=== PATIENT | female | born 1990 ===

== ENCOUNTER 2025-02-15 09:42 | Outpatient (AMB) | payer BC, SELFPAY ==
--- NOTE | 2025-02-15 09:46 | MHC.PC.OV ---
Vital Signs 02/15/25 09:47 Height 5 ft 4.37 in Weight 235 lb 6 oz BMI 39.9 BP 108/76 Blood Pressure Location Lt brachial Position Sitting Respiration 14 Pulse 92 Pulse Source Pulse Oximeter Pulse Oximetry (%) 99 Oxygen Delivery Method Room Air Intake Visit Reasons: EST CARE REQUESTING PE Intake Note: New patient visit. Hasnt been to the doctor in awhile. Binder Technician Required: No Allergies No Known Allergies Allergy (Verified 02/15/25 10:11) Medication List - Last Reconciled 02/15/25 by Trini Dudley PA-C No Known Home Meds Tobacco use date assessed: 02/15/25 Dental Screening Dental Screen Date: 02/15/25 Did you have a dental visit in the last 12 months?: No Did you have a dental problem in the last 6 months where you did not have access to dental care?: No Was dental information given to patient?: Patient has dentist HPI EST CARE REQUESTING PE HPI Details Patient is a 34-year-old female who presents today to [facility]. She is transferring from pediatrics (12 years ago). She reports a significant past medical history of asthma. She does have a list of some concerns today. General: States that she just feels very tired all of the time. She does not sleep that well at night. She says that she gets up frequently. Pulm: has a hx of mild, rare asthma. States that she has not needed an inhaler in years. Never hospitalized for this. Derm: Does report toenail fungus for 2 years. She has tried some lkar-kth-sdluenx antifungal but that did not seem to alleviate the symptoms. She also has been breaking out in an intermittent, bumpy, rough rash noted on her bilateral forearms. Sometimes it is spreads to her neck. She wonders if this could be eczema. GI: She reports epigastric pain with a gnawing sensation that gets worse without eating. She states she feels a burning sensation with it. She states it is improved with tums. She gets nausea with going too long without eating. It was improved with food. She denies any weight loss or vomiting. At sometimes feels episodes of constipation. No bleeding or mucous in the stool. 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 1. Little interest or pleasure in doing things: nearly every day 2. Feeling down, depressed, or hopeless: not at all 3. Trouble falling or staying asleep, or sleeping too much: not at all 4. Feeling tired or having little energy: not at all 5. Poor appetite or overeating: not at all 6. Feeling bad about yourself - or that you are a failure or have let yourself or your family down: not at all 7. Trouble concentrating on things, such as reading the newspaper or watching television: not at all 8. Moving or speaking so slowly that other people could have noticed. Or the opposite - being so fidgety or restless that you have been moving around a lot more than usual: not at all 9. Thoughts that you would be better off or of hurting yourself in some way: not at all Total score: 3 Depression Screening Interpretation: Negative Depression Screening Done: Yes 75655 - PHQ-9 Billing: Yes Source: Developed by Drs. Rahul Batista, Joelle Dumont, Yazan Pizano and colleagues, with an educational michael from [employer]. Thrive Questionnaire Date Thrive assessed: 02/15/25 I am a: Patient What is your living situation today?: I have a steady place to live Within the past 12 months, did the food you bought not last and you didn't have the money to get more?: Never true Within the past 12 months, did you worry whether your food would run out before you got money to buy more?: Never true Do you have trouble paying for medicines?: No Do you have trouble getting transportation to medical appointments?: No Do you have trouble paying your heating and electricity bill?: No Do you have trouble taking care of your child, family member or friend?: No Do you have trouble with day-to-day activities such as bathing, preparing meals, shopping, managing finances, etc.?: No Are you currently unemployed and looking for a job?: No Are you interested in more education?: Yes Please select the resources that you would like help with: None Currently or been in a relationship where the following occur: No concerns reported THRIVE Score: 0 AUDIT C Alcohol Use Questionnaire (AUDIT-C) 1. How often do you have a drink containing alcohol?: Monthly or less 2. How many drinks containing alcohol do you have on a typical day when you are drinking?: 1 or 2 3. How often do you have six or more drinks on one occasion?: Never Total Score: 1 Score Reviewed/Action Taken: Yes STACI-7 AMB Questionnaire STACI-7 Feeling nervous, anxious, or on edge: 1 = Several days Not being able to stop or control worryin = Several days Worrying too much about different things: 1 = Several days Trouble relaxin = Not at all Being so restless that it is hard to sit still: 0 = Not at all Becoming easily annoyed or irritable: 1 = Several days Feeling afraid as if something awful might happen: 0 = Not at all Total STACI-7 score (0-4 normal; 5-9 mild; 10-14 moderate; 15-21 severe): 4 Source: Developed by Drs. Rahul Batista, Joelle Dumont, Yazan Pizano and colleagues, with an educational michael from [employer]. STACI-7 Assessment Billing STACI-7 Assessment Tool: STACI-7 Assessment 41320 Physical exam (Primary Care) Vital Signs: Last Vital Signs Pulse 92 02/15/25 09:47 Resp 14 02/15/25 09:47 BP 108/76 02/15/25 09:47 Pulse Ox 99 02/15/25 09:47 Oxygen Delivery Method Room Air 02/15/25 09:47 BMI result Body Mass Index 39.9 Tobacco/Smoking Status: Tobacco use Status Tobacco use date assessed 02/15/25 02/15/25 09:55 Patient Tobacco Use Status Never used Tobacco 02/15/25 09:55 e-Cigarette/Vaping Use Never Used 02/15/25 09:55 PHQ-9: PHQ-9 Score PHQ-9: Total score 3 02/15/25 13:25 Depression Screening Interpretation: Negative Thrive Assessment: Date of Thrive Assessment Date Thrive assessed 02/15/25 02/15/25 09:55 Currently or been in a relationship where the following occur: No concerns reported Const Orientation/consciousness: patient oriented x3 HENMT Ears: hearing grossly normal bilaterally and TM's normal bilaterally General nose exam: No nasal polyps present Face and sinus: Yes sinuses nontender Mouth: Normal oral and palatal mucosa present Eyes EOM: EOMs intact bilaterally Neck Neck: Yes full ROM and Yes no lymphadenopathy Thyroid: Thyroid normal Chest Chest palpation & inspection: normal inspection of the chest Resp Auscultation: clear to auscultation bilaterally Cardio Rate: regular rate Rhythm: regular rhythm Heart sounds: S1 normal heart sound present and S2 normal heart sound present Peripheral pulses: Peripheral pulses 2+ throughout GI Other: Soft, nontender Auscultation: normal bowel sounds Rectal Exam - Female: deferred Skin Other: There is a fine, flesh-colored, papular rash noted on the bilateral upper extremities on the flexor surfaces. There is a circular rash noted on the left upper arm that is approximately 3 in x 3 in with a center if clearing in a slightly raised outer erythematous ring. Neuro General: patient oriented x3, gait normal, CN's II-XI intact bilaterally and deep tendon reflexes 2+ bilaterally Extrem Other: Thickened toenails General: Yes normal to inspection and Yes full ROM Psych Affect: normal affect Attitude: cooperative Thought process: Normal thought process present Thought content: Normal thought content present Insight: Good insight present (Psych) Judgement: Good judgement present (Psych) Coding Level of Care Code New Pt Level 4 (17794) Complex EM visit Add On G2211 Diagnoses Lesion of skin of face L98.9 Dermatitis L30.9 Onychomycosis B35.1 Fatigue R53.83 Epigastric pain R10.13 Constipation K59.00 Additional Codes STACI-7 Assessment Billing - STACI-7 Assessment Tool: STACI-7 Assessment 88111 ([id number]) PHQ-9 - 01403 - PHQ-9 Billing: Yes ([id number]) Assessment & Plan Assessment & Plan (1) Lesion of skin of face: Code(s): L98.9 - Disorder of the skin and subcutaneous tissue, unspecified Category: Medical Plan: Referral to dermatology (2) Dermatitis: Code(s): L30.9 - Dermatitis, unspecified Category: Medical Plan: Advised to apply triamcinolone cream (3) Onychomycosis: Code(s): B35.1 - Tinea unguium Category: Medical Plan: Penlac solution ordered (4) Fatigue: Code(s): R53.83 - Other fatigue Category: Medical Plan: Labs ordered today. We will follow up pending test results (5) Epigastric pain: Code(s): R10.13 - Epigastric pain Category: Medical Plan: H pylori test ordered. Labs ordered. We discussed diet and lifestyle modifications. (6) Constipation: Code(s): K59.00 - Constipation, unspecified Category: Medical Plan: As above. Referral to GI. Discussed diet changes, increase exercise and water intake. Orders: Orders Lipid Panel Today B35.1 - Tinea unguium, K59.00 - Constipation, unspecified, L30.9 - Dermatitis, unspecified, L98.9 - Disorder of the skin and subcutaneous tissue, unspecified, R10.13 - Epigastric pain, R53.83 - Other fatigue Magnesium Today B35.1 - Tinea unguium, K59.00 - Constipation, unspecified, L30.9 - Dermatitis, unspecified, L98.9 - Disorder of the skin and subcutaneous tissue, unspecified, R10.13 - Epigastric pain, R53.83 - Other fatigue Hemoglobin A1c Today B35.1 - Tinea unguium, K59.00 - Constipation, unspecified, L30.9 - Dermatitis, unspecified, L98.9 - Disorder of the skin and subcutaneous tissue, unspecified, R10.13 - Epigastric pain, R53.83 - Other fatigue, R73.01 - Impaired fasting glucose Vitamin D 25-OH Total Today K59.00 - Constipation, unspecified, R10.13 - Epigastric pain, R53.83 - Other fatigue Complete Blood Count Auto Diff Today B35.1 - Tinea unguium, K59.00 - Constipation, unspecified, L30.9 - Dermatitis, unspecified, L98.9 - Disorder of the skin and subcutaneous tissue, unspecified, R10.13 - Epigastric pain, R53.83 - Other fatigue Comprehensive Hanna. Panel Fast Today B35.1 - Tinea unguium, K59.00 - Constipation, unspecified, L30.9 - Dermatitis, unspecified, L98.9 - Disorder of the skin and subcutaneous tissue, unspecified, R10.13 - Epigastric pain, R53.83 - Other fatigue Microalbumin, Random (w Creat) Today B35.1 - Tinea unguium, K59.00 - Constipation, unspecified, L30.9 - Dermatitis, unspecified, L98.9 - Disorder of the skin and subcutaneous tissue, unspecified, R10.13 - Epigastric pain, R53.83 - Other fatigue Vitamin B12 and Folate Today B35.1 - Tinea unguium, K59.00 - Constipation, unspecified, L30.9 - Dermatitis, unspecified, L98.9 - Disorder of the skin and subcutaneous tissue, unspecified, R10.13 - Epigastric pain, R53.83 - Other fatigue TSH reflex Free T4 Today B35.1 - Tinea unguium, K59.00 - Constipation, unspecified, L30.9 - Dermatitis, unspecified, L98.9 - Disorder of the skin and subcutaneous tissue, unspecified, R10.13 - Epigastric pain, R53.83 - Other fatigue Ferritin Today B35.1 - Tinea unguium, K59.00 - Constipation, unspecified, L30.9 - Dermatitis, unspecified, L98.9 - Disorder of the skin and subcutaneous tissue, unspecified, R10.13 - Epigastric pain, R53.83 - Other fatigue IRON PROFILE Today B35.1 - Tinea unguium, K59.00 - Constipation, unspecified, L30.9 - Dermatitis, unspecified, L98.9 - Disorder of the skin and subcutaneous tissue, unspecified, R10.13 - Epigastric pain, R53.83 - Other fatigue H pylori Ag Stool Today K59.00 - Constipation, unspecified, R10.13 - Epigastric pain, R53.83 - Other fatigue Referrals Dermatology Referral B35.1 - Tinea unguium, L30.9 - Dermatitis, unspecified, L98.9 - Disorder of the skin and subcutaneous tissue, unspecified Gastroenterology Referral K59.00 - Constipation, unspecified Medications: New ciclopirox 8% 1 appl topical DAILY 4 weeks 6.6 mL 3RF triamcinolone acetonide 0.025% 1 appl topical BID 14 days 80 grams 2RF clotrimazole 1% to affected area on left arm 1 appl topical BID 4 weeks 30 grams 0RF
[2025-02-15 09:47] VITALS: BP 108/76; PULSE 92; RESP 14; O2SAT 99; BMI 39.9
--- OUTSIDE RECORDS SUMMARY | 2025-02-15 10:18 | XMS_ITS | Clinical Summary ---
Author Organization [facility] ity Address [address] [place] [address] Care Team Providers Care Part Time Receptionist Name Role Phone Анна Guido MD Primary Care Prov ider Allergies Active Allergy Reactions Criticality Noted Date Comments Other Nausea And Vomiting 01/03/2014 Seafood Medications fluticasone HFA (FLOVENT HFA) 44 mcg/actuation inhaler Inhale 2 Puffs into the lungs 2 times daily. Active loratadine (CLARITIN) 10 mg tablet Take 10 mg by mouth daily. Prn Active Active Problems Problem Noted Date Diagnosed Date Intermittent asthma, well controlled 01/03/2014 Immunizations Name Administration Dates Next Due Pneumococcal polysaccharide 23 valent (Pneumovax 23) 2yo and older 01/03/2014 Tdap Tetanus diptheria acell ular pertussis (Boostrix; Adacel) 7yo and older 01/03/2014 Surgical History Surgery Date Site/Laterality Comments OTHER SURGICAL HISTORY PROCEDURE: DENIES PREVIOUS SURGERY Medical History Medical History Date Comments Historical Medical DX 01/03/2014 DX:Asthma, intermittent controlled Family History Medical History Relation Name Comments Asthma Mother Relation Name Status Comments Brother 1 Alive Brother 2 Alive Brother 3 Alive Brother 4 Alive Brother 5 Alive Father Alive Mother Alive Sister 1 Alive Sister 2 Alive Social History Tobacco Use Types Packs/Day Years Used Date Smoking Tobacco: Never Smokeless Tobacco: Never Alcohol Use Standard Drinks/Week Comments No 0 (1 standard drink = 0.6 oz pur e alcohol) Comments Unknown Sex and Gender Information Value Date Recorded Sex Assigned at Not on file Legal Sex Female 7:05 AM EST Gender Identity Not on file Sexual Orientation Not on file Obstetrics History Plan of Treatment Health Maintenance Due Date Last Done Comments Hepatitis B Vaccines (1 of 3 - 19+ 3-dose series) 2009 Cervical Cancer Screening: P ap Smear 2011 Pneumococcal Vaccine: Pediat rics (0 to 5 Years) and At-Risk Patients (6 to 64 Years) (2 of 2 - PCV) 01/03/2015 01/03/2014 DTaP,Tdap,and Td Vaccines (2 - Td or Tdap) 01/04/2024 01/03/2014 COVID-19 Vaccine (1 - 2023-2 5 season) 2024 Depression Screening 11/04/2024 HIV Screening 11/04/2024 Hepatitis C Screening 11/04/2024 Social Influencers of Health Screening 11/04/2024 Influenza Vaccine (Season Ended) 2025 HIB Vaccines Aged Out No longer eligi ble based on patient's age to complete this topic HPV Vaccines Aged Out No longer eligi ble based on patient's age to complete this topic Hepatitis A Vaccines Aged Out No long er eligible based on patient's age to complete this topic IPV Vaccines Aged Out No longer eligi ble based on patient's age to complete this topic MMR Vaccines Aged Out No longer eligi ble based on patient's age to complete this topic Meningococcal ACWY Vaccine Aged Out N o longer eligible based on patient's age to complete this topic Meningococcal B Vaccine Aged Out No l onger eligible based on patient's age to complete this topic RSV Immunization Patients Un kay 20 months Aged Out No longer eligible b ased on patient's age to complete this topic Varicella Vaccines Aged Out No longer eligible based on patient's age to complete this topic Care Teams Part Time Receptionist Relationship Specialty Start Date End Date Анна Guido MD PCP - General 11/22/13
--- OUTSIDE RECORDS SUMMARY | 2025-02-15 10:19 | XMS_ITS ---
Author Name [facility] Results Test Name/Text Value Interpretation Date Range Source CHLAMYDIA TRACHOMATIS, NAAT Negative [id number] - [facility] NEISSERIA GONORRHOEAE RIBOSO MAL RNA Negative [id number] - [facility] SYPHILIS SCREEN Nonreactive [id number] - [facility] HEPATITIS B SURFACE ANTIGEN (IA5) Negative [id number] - [facility] HEPATITIS C ANTIBODY (IA5) Negative [id number] - [facility] HIV 1+2 AB + HIV1 P24 AG (PRESENCE) IN SERUM BY IMMUNOASSAY Negative [id number] - [facility] Problems Problem Status Onset Date Problem Type Date of Resoluti on Source Screen for STD (sexually transmitted disease) active EncounterDiagnosisAct [facility] Sore throat active EncounterDiagnosisAct [facility] Encounters Encounter Type Encounter Reason Primary Diagnosis Location Date Ambulatory Encounter for screening for infections w Encounter for screening for infections with a predominantly sexual mode of transmission [facility] 02/09/2025 Ambulatory Encounter for gynecological examination Encounter for gynecological examination (general) (routine) without abnormal findings [facility] 02/09/2025 Emergency Strain of muscle, fascia and tendon at n Strain of muscle, fascia and tendon at neck level, initial encounter [facility] 05/31/2024 Emergency Strain of unspecifie d muscle, fascia and Strain of unspecified muscle, fascia and tendon at shoulder and upper arm level, right arm, initial encounter [facility] 09/18/2023 Ambulatory Acute pharyngitis, unspecified Acute pharyngitis, unspecified [facility] 05/27/2023 Ambulatory Encounter for gynecological examination (general) (routine) without abnormal findings [facility] 08/12/2022 Ambulatory Pelvic and perin eal pain [facility] 05/06/2022 Emergency Unspecified ovar la nena cyst, right side [facility] 04/29/2022 Ambulatory Lower abdominal pain, unspecified [facility] 04/29/2022 Care Team Organization Name Specialty Phone Email Start Date End Da neema [facility] PCP,No Primary Care 08/12/2022 [facility] NO PCP Primary Care 04/29/202205/[address] [facility] 04/29/2022 04/29/[address] [facility] 04/29/2022
--- OUTSIDE RECORDS SUMMARY | 2025-02-15 10:19 | XMS_ITS | Clinical Summary ---
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 estradioL-iron (JUNEL FE 10/24) 1 mg-20 mcg (21)/75 mg (7) per tablet Take 1 tablet by mouth in the morning. 28 tablet 10/12/2023 Active Encounters Date Type Department Care Team Description 02/09/2025 11:30 AM EDT Office Visit [facility] [place] [address] [place] [address] Elizabeth Adame, RESERVOIR CARETAKER Encounter for gynecological examination without abnormal finding (Primary Dx); Missed menses; Screen for STD (sexually transmitted disease); Pelvic pressure in female from Last 3 Months Family History Medical History Relation Comments Asthma Mother Cervical cancer Mother Relation Status Comments Father Alive Mother Alive Social History Tobacco Use Types Packs/Day Years Used Date Smoking Tobacco: Never Smokeless Tobacco: Never Alcohol Use Standard Drinks/Week Comments Not Currently 0 (1 standard drink = 0.6 oz pur e alcohol) Comments No Sex and Gender Information Value Date Recorded Sex Assigned at Not on file Legal Sex Female 9:20 PM EDT Gender Identity Not on file Sexual Orientation Not on file COVID-19 Exposure Response Date Recorded In the last 10 days, have gregory u been in contact with someone who was confirmed or suspected to have Coronavirus/COVID-19? No / Unsure 02/09/2025 10:40 AM EDT Last Filed Vital Signs Vital Sign Reading Time Taken Comments Blood Pressure 127/78 02/09/2025 11:39 AM EDT Pulse 86 02/09/2025 11:39 AM EDT Temperature 36.5 ??C (97.7 ??F) 05/31/2024 2:49 PM ED T Respiratory Rate 18 05/31/2024 2:49 PM EDT Oxygen Saturation 95% 05/31/2024 2:49 PM EDT Inhaled Oxygen Concentration - - Weight 107 kg (235 lb 12.8 oz) 02/09/2025 11:39 AM EDT Height 165.1 cm (5' 5 ) 02/09/2025 11:39 AM EDT Body Mass Index 39.24 02/09/2025 11:39 AM EDT Plan of Treatment Upcoming Encounters Date Type Department Care Team (Late st Contact Info) Description 02/17/2025 2:00 PM EDT Appointment [facility] Department of Ultrasound Imaging [address] [place] [address] Elizabeth Adame, RESERVOIR CARETAKER [address] [place] [address] Health Maintenance Due Date Last Done Comments Hepatitis B Vaccines (1 of 3 - 19+ 3-dose series) 2009 Pneumococcal Vaccine: Pediat rics (0 to 5 Years) and At-Risk Patients (6 to 49 Years) (2 of 2 - PCV) 01/03/2015 01/03/2014 DTaP,Tdap,and Td Vaccines (2 - Td or Tdap) 01/04/2024 01/03/2014 COVID-19 Vaccine ( - 2023-2 5 season) 2024 Pap Smear 05/06/2025 05/06/2022 Influenza Vaccine (Season Ended) 2025 Cervical Cancer Screening 05/06/2027 HPV/Cotest 05/06/2027 05/06/2022 Zoster Vaccines (1 of 2) 2040 HIV Screening Completed 02/09/2025 Hepatitis C Screening Completed 02/09/2025 HPV Vaccines Aged Out No longer eligi ble based on patient's age to complete this topic Hepatitis A Vaccines Aged Out No long er eligible based on patient's age to complete this topic MMR Vaccines Aged Out No longer eligi ble based on patient's age to complete this topic Meningococcal Vaccine Aged Out No natalie eric eligible based on patient's age to complete this topic Procedures Procedure Name Priority Date/Time Associated Diagnosis Comments NEISSERIA GONORRHEA NAAT Routine 02/09/2025 12:52 PM EDT Screen for STD (sexually transmitted disease) CHLAMYDIA TRACHOMATIS NAAT Routine 02/09/2025 12:52 PM EDT Screen for STD (sexually transmitted disease) NEISSERIA GONORRHOEAE/CHLAMYDIA TRACHOMATIS NAAT Routine 02/09/2025 12:52 PM EDT Screen for STD (sexually transmitted disease) SYPHILIS SCREEN W/REFLEX TO CONFIRMATION Routine 02/09/2025 12:22 PM EDT Screen for STD (sexually transmitted disease) HIV COMBO ANTIGEN/ANTIBODY Routine 02/09/2025 12:22 PM EDT Screen for STD (sexually transmitted disease) HEPATITIS C ANTIBODY Routine 02/09/2025 12:22 PM EDT Screen for STD (sexually transmitted disease) HEPATITIS B SURFACE ANTIGEN Routine 02/09/2025 12:22 PM EDT Screen for STD (sexually transmitted disease) POCT , URINE Routine 02/09/2025 11:51 AM EDT Missed menses PAP TEST Routine 05/06/2022 11:29 AM EDT Screening for cervical cancer HPV, HIGH RISK, NAAT, W/ REFLEX TO GENOTYPES 16 AND 18/45 Routine 05/06/2022 11:29 AM EDT Screening for cervical cancer from Last 3 Months or Most Recently Relevant to Health Maintenance Results * Neisseria gonorrhea NAAT (02/09/2025 12:52 PM EDT) Neisseria gonorrhoeae ribosomal RNA Negative Negative 02/09/2025 6:44 PM EDT [facility] Comment:Specimen is presumpt ively negative for Neisseria gonorrhoeae ribosomal RNA (rRNA). A negative result does not preclude the presence of a Neisseria gonorrhoeae infection because results are dependent on adequate specimen collection, absence of inhibitors, and sufficient rRNA to be detected. Swab Vaginal structure / Unknown Non-blood Collection / Unknown 02/09/2025 12:52 PM EDT 02/09/2025 2:22 PM EDT [facility] - 02/09/2025 6:44 PM EDT The Aptima Combo 2 Assay is a second-generation nucleic acid amplification test (NAAT) that utilizes target capture, Digital Pre Press Operator-Mediated Amplification (TMA??), and Dual Kinetic Assay (DKA) technologies for the qualitative detection and differentiation of ribosomal RNA (rRNA) from Chlamydia trachomatis (CT) and / or Neisseria gonorrhoeae (GC). us Elizabeth Adame APRN LAB MICROBIOLOGY - GENERA L ORDERABLES Final Result [facility] [address] [place] [address], * Chlamydia trachomatis NAAT (02/09/2025 12:52 PM EDT) Chlamydia trachomatis ribosomal RNA Negative Negative 02/09/2025 6:44 PM EDT [facility] Comment:Specimen is presumpt ively negative for Chlamydia trachomatis ribosomal RNA (rRNA). A negative result does not preclude the presence of a Chlamydia trachomatis infection because results are dependent on adequate specimen collection, absence of inhibitors, and sufficient rRNA to be detected. Swab Vaginal structure / Unknown Non-blood Collection / Unknown 02/09/2025 12:52 PM EDT 02/09/2025 2:22 PM EDT [facility] - 02/09/2025 6:44 PM EDT The Aptima Combo 2 Assay is a second-generation nucleic acid amplification test (NAAT) that utilizes target capture, Digital Pre Press Operator-Mediated Amplification (TMA??), and Dual Kinetic Assay (DKA) technologies for the qualitative detection and differentiation of ribosomal RNA (rRNA) from Chlamydia trachomatis (CT) and / or Neisseria gonorrhoeae (GC). Elizabeth Adame APRN LAB MICROBIOLOGY - GENERA L ORDERABLES Final Result Performing Organization Address City/[facility]/ZIP Co de Phone Number [facility] [address] [place] [address], [place] [phone] * Syphilis Screen w/Reflex to Confirmation (02/09/2025 12:22 PM EDT) Syphilis Screen Nonreactive Nonreactive 02/09/2025 2:30 PM EDT [facility] Blood Venous blood specimen / Unknown Venipuncture / Unknown 02/09/2025 12:22 PM EDT 02/09/2025 12:22 PM EDT Elizabeth Adame APRN LAB BLOOD ORDERABLES [place] l Result Performing Organization Address City/[facility]/ZIP Co de Phone Number [facility] [address] [place] [address], [place] [phone] * HIV combo antigen/antibody (02/09/2025 12:22 PM EDT) HIV Combo AB/AG Negative Negative 02/09/2025 2:29 PM EDT [facility] Blood Venous blood specimen / Unknown Venipuncture / Unknown 02/09/2025 12:22 PM EDT 02/09/2025 12:22 PM EDT Narrative [facility] - 02/09/2025 2:29 PM EDT This test is a 4th generation HIV Antigen-Antibody Combination assay, using a chemiluminescent microparticle immunoassay, for the simultaneous qualitative detection of human immuno- deficiency virus (HIV) p24 antigen and antibodies to HIV type 1 (HIV-1) and/or HIV type 2 (HIV-2) in human serum or plasma. The SignStoreynity HIV Ag/Ab Combo assay is intended to be used as an aid in the diagnosis of HIV-1 and/or HIV-2 infection, including acute or primary HIV-1 infection. Initially-positive tests are repeated in duplicate. Repeat-positive tests will be confirmed for HIV by a HIV-1/HIV-2 rapid supplemental/ differentiation antibody assay. This testing algorithm is in line with the current CDC recommendations. [facility] LAB BLOOD ORDERABLES NO S TAT Final Result Performing Organization Address City/[facility]/ZIP Co de Phone Number [facility] [address] [place] [address], [place] [phone] * Hepatitis C antibody (02/09/2025 12:22 PM EDT) Pathologist [facility] Hepatitis C Antibody Negative Negative 02/09/2025 2:30 PM EDT [facility] Comment:Anti-HCV (HCVAb) Not Detected. Patient is presumed not to be infected with HCV. The possibility of exposure to HCV cannot be excluded. Blood Venous blood specimen / Unknown Venipuncture / Unknown 02/09/2025 12:22 PM EDT 02/09/2025 12:22 PM EDT [facility] LAB BLOOD ORDERABLES NO S TAT Final Result [facility] [address] [place] [address], [place] [phone] * Hepatitis B surface antigen (02/09/2025 12:22 PM EDT) Hepatitis B Surface Antigen Negative Negative 02/09/2025 2:30 PM EDT [facility] Comment:HBsAg Not Detected. Specimen is presumed to be negative for Hepatitis B surface Antigen. Blood Venous blood specimen / Unknown Venipuncture / Unknown 02/09/2025 12:22 PM EDT 02/09/2025 12:22 PM EDT us Elizabeth Adame APRN LAB BLOOD ORDERABLES NO S TAT Final Result Performing Organization Address City/[facility]/ZIP Co de Phone Number [facility] [address] [place] [address], * POCT , urine (02/09/2025 11:51 AM EDT) Preg Test, Ur Negative Negative Test Device Lot # [id number] Test Device Exp. date 03/21/2026 Internal Control Pass (Y/N) Yes Urine 02/09/2025 11:5 1 AM EDT Elizabeth Adame APRN POINT OF CARE TEST ORDERA BLES Final Result * HPV, high risk, NAAT (05/06/2022 11:29 AM EDT) HPV, high-risk Negative Negative 05/09/2022 2:12 PM EDT [facility] [place] biopsy (procedure) Cervix uteri structure / Unknown Non-blood Collection / Unknown 05/06/2022 11:29 AM EDT 05/06/2022 1:35 PM EDT Narrative [facility] - 05/09/2022 2:12 PM EDT Negative results indicate Human Papillomavirus (HPV) E6/E7 viral messenger RNA of the 14 high-risk types of HPV was not detected. NOTE: Negative results may occur with HPV E6/E7 mRNA concentrations that are below the pre-set limit of detection threshold for this assay. Results of this test should only be interpreted in conjunction with information available from the clinical evaluation of the patient and patient history. us Elizabeth Adame APRN LAB MICROBIOLOGY - GENERA L ORDERABLES Final Result Performing Organization Address City/[facility]/ZIP Co de Phone Number [facility] [address] [place] [address], * Pap Test (05/06/2022 11:29 AM EDT) Case Report Cytology ?Case: [id number] ? Authorizing Provider: ??Elizabeth Adame APRN ?? Collected: ? 05/06/2022 1129 ? Ordering Location: ? [facility] Department of Received: ?2022 0853 ? [facility] [place] ? First Screen: ?Hoda Baker, RUT (ASCP) ? Pathologist: ? Brittany Kimbrough MD ? Specimen: ?Cytopathology, screening PAP test, Cervix ? 05/09/2022 2:12 PM EDT [facility] LMP 04/15/2022 05/09/2022 2:12 PM EDT [facility] Interpretation Negative for intraepithelial lesion or malignancy 05/09/2022 2:12 PM EDT [facility] at 1412 EDT Specimen Adequacy Satisfactory for evaluation, endocervical/bender sformation zone component present 05/09/2022 2:12 PM EDT [facility] Other Findings Reparative changes 05/09/2022 2:12 PM EDT [facility] Specimen Processing Thin Prep pap with manual screen/rescreen or review 05/09/2022 2:12 PM EDT [facility] Educational Note The Pap test is a screening test which carries an inherent false negative rate. These test results should be correlated with the patient's clinical findings and history. 05/09/2022 2:12 PM EDT [facility] Embedded Images 2:12 PM EDT [facility] High Risk HPV Nucleic Acid Detection Negative 05/09/2022 2:12 PM EDT [facility] Comment: Negative results indicate HPV E6/E7 mRNA of the 14 high-risk types of HPV was not detected. NOTE: Negative results may occur with HPV E6/E7 mRNA concentrations that are below the pre-set limit of detection threshold for this assay. Results of this test should only be interpreted in conjunction with information available from the clinical evaluation of the patient and patient history. The APTIMA HPV Assay is a target amplification nucleic acid probe test for the in vitro qualitative detection of E6/E7 viral messenger RNA (mRNA), from 14 high- risk HPV types of human papillomavirus (HPV) (16/18/31/33/35/39/45/51/52/56/58/59/66/68) in cervical specimens collected in ThinPrep Pap Test vials containing PreservCyt Solution. The APTIMA HPV Assay does not discriminate between the 14 high-risk types. ??If clinically indicated, positive samples may be additionally tested with the APTIMA HPV 16 18/45 Genotype Assay to assess the presence or absence of high- risk HPV genotypes 16, 18 and/or 45. These results are not intended to be the sole means for clinical diagnosis and should always be correlated with other patient findings, including cytology, histology, and clinical evaluation. 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
--- OUTSIDE RECORDS SUMMARY | 2025-02-15 10:19 | XMS_ITS | Clinical Summary ---
Author Organization [facility] Address [address] [place] [address] Care Team Providers Care Account Manager Relief Name Role Phone Pcp, No Primary Care Provider Unavailabl e Allergies No known active allergies Medications norethindrone-et hinyl estradiol (10/24) 1-20 MG-MCG per tablet Take 1 tablet by mouth daily. Active Active Problems No known active problems Social History Tobacco Use Types Packs/Day Years Used Date Smoking Tobacco: Never Assessed Comments Unknown Sex and Gender Information Value Date Recorded Sex Assigned at Not on file Legal Sex Female 7:17 PM EDT Gender Identity Not on file Sexual Orientation Not on file Last Filed Vital Signs Vital Sign Reading Time Taken Comments Blood Pressure 111/77 05/27/2023 1:27 PM EDT Pulse 83 05/27/2023 1:27 PM EDT Temperature 37 ??C (98.6 ??F) 05/27/2023 1:27 PM EDT Respiratory Rate - - Oxygen Saturation 98% 05/27/2023 1:27 PM EDT Inhaled Oxygen Concentration - - Weight - - Height - - Body Mass Index - - Plan of Treatment Health Maintenance Due Date Last Done Comments Hepatitis C Virus Screening 1990 HIV Screening 2003 DTaP/Tdap/Td Vaccines (1 - Tdap) 2009 Hepatitis B Vaccines (1 of 3 - 19+ 3-dose series) 2009 Pap Smear (Ages 21-65) 2011 COVID-19 Vaccine ( - 2023-2 5 season) 2024 Influenza Vaccine 05/05/2025 HPV Vaccines Aged Out No longer eligi ble based on patient's age to complete this topic Pneumococcal Vaccine: Pediat destin (0-5 Years) and At-Risk Patients (6 to 49 Years) Aged Out No longer eligible b ased on patient's age to complete this topic Insurance [employer] HMO Care Teams Account Manager Relief Relationship Specialty Start Date End Date Pcp, No PCP - General General Medicine 05/03/23
== END 2025-02-15 10:42 | disposition home or self-care (01) ==
LOC: HO.HMCFM 09:43
PROVIDERS: PCP Physician Assistant; Visit Provider Physician Assistant
DX: L98.9 Disorder of the skin and subcutaneous tissue, unspecified (principal); L30.9 Dermatitis, unspecified; B35.1 Tinea unguium; R53.83 Other fatigue; R10.13 Epigastric pain; K59.00 Constipation, unspecified

== ENCOUNTER → 2025-02-15 09:42 | Outpatient (BNVA) | payer BC, SELFPAY | PROVIDERS: PCP Physician Assistant; Visit Provider Physician Assistant | DX: J45.909 Unspecified asthma, uncomplicated (principal); L98.9 Disorder of the skin and subcutaneous tissue, unspecified; L30.9 Dermatitis, unspecified; B35.1 Tinea unguium; R53.83 Other fatigue; R10.13 Epigastric pain; K59.00 Constipation, unspecified | CPT/HCPCS: 96127 ==

== ENCOUNTER 2025-02-15 10:49 | Outpatient (REF) | payer BC, SELFPAY ==
--- OUTSIDE RECORDS SUMMARY | 2025-02-15 11:55 | XMS_ITS | Clinical Summary ---
Author Organization [facility] Address [address] [place] [address] Care Team Providers Care Revenue Analyst Name Role Phone Pcp, Joya MARQUES Primary Care Provider Elizabeth Stanley CORROSION PREVENTION METAL SPRAYER Unavailable [phone] Allergies Active Allergy Reactions Criticality Noted Date Comments Shellfish Derived 04/29/2022 Medications norethindrone-e. estradioL-iron (JUNEL FE 10/24) 1 mg-20 mcg (21)/75 mg (7) per tablet Take 1 tablet by mouth in the morning. 28 tablet 10/12/2023 Active Encounters Date Type Department Care Team Description 02/09/2025 11:30 AM EDT Office Visit [facility] [employer] [address] [place] [address] Elizabeth Adame, CORROSION PREVENTION METAL SPRAYER Encounter for gynecological examination without abnormal finding [...] Info) Description 02/17/2025 2:00 PM EDT Appointment [facility] Department of Ultrasound Imaging [address] [place] [address] Elizabeth Adame, CORROSION PREVENTION METAL SPRAYER [address] [place] [address] Health Maintenance Due Date Last Done Comments [...] RNA Negative Negative 02/09/2025 6:44 PM EDT [facility] Comment:Specimen is presumpt ively negative for Neisseria gonorrhoeae ribosomal RNA (rRNA). A negative result does not preclude the presence of a Neisseria gonorrhoeae infection because results are dependent on adequate specimen collection, absence of inhibitors, and sufficient rRNA to be detected. Swab Vaginal structure / Unknown Non-blood Collection / Unknown 02/09/2025 12:52 PM EDT 02/09/2025 2:22 PM EDT [facility] - 02/09/2025 6:44 PM EDT The Aptima Combo 2 Assay is a second-generation nucleic acid amplification test (NAAT) that utilizes target capture, B Operator-Mediated Amplification (TMA??), and Dual Kinetic Assay (DKA) technologies for the qualitative detection and differentiation of ribosomal RNA (rRNA) from Chlamydia trachomatis (CT) and / or Neisseria gonorrhoeae (GC). us Elizabeth Adame APRN LAB MICROBIOLOGY - GENERA L ORDERABLES Final Result [facility] [address] [place] [address], * Chlamydia trachomatis NAAT (02/09/2025 12:52 PM EDT) Chlamydia trachomatis ribosomal RNA Negative Negative 02/09/2025 6:44 PM EDT [facility] Comment:Specimen is presumpt ively negative for Chlamydia trachomatis ribosomal RNA (rRNA). A negative result does not preclude the presence of a Chlamydia trachomatis infection because results are dependent on adequate specimen collection, absence of inhibitors, and sufficient rRNA to be detected. Swab Vaginal structure / Unknown Non-blood Collection / Unknown 02/09/2025 12:52 PM EDT 02/09/2025 2:22 PM EDT [facility] - 02/09/2025 6:44 PM EDT The Aptima Combo 2 Assay is a second-generation nucleic acid amplification test (NAAT) that utilizes target capture, B Operator-Mediated Amplification (TMA??), and Dual Kinetic Assay (DKA) technologies for the qualitative detection and differentiation of ribosomal RNA (rRNA) from Chlamydia trachomatis (CT) and / or Neisseria gonorrhoeae (GC). Elizabeth Adame APRN LAB MICROBIOLOGY - GENERA L ORDERABLES Final Result Performing Organization Address City/[facility]/ZIP Co de Phone Number [facility] [address] [place] [address], [place] [phone] * Syphilis Screen w/Reflex to Confirmation (02/09/2025 12:22 PM EDT) Syphilis Screen Nonreactive Nonreactive 02/09/2025 2:30 PM EDT [facility] Blood Venous blood specimen / Unknown Venipuncture / Unknown 02/09/2025 12:22 PM EDT 02/09/2025 12:22 PM EDT Elizabeth Adame APRN LAB BLOOD ORDERABLES [place] l Result Performing Organization Address City/[facility]/ZIP Co de Phone Number [facility] [address] [place] [address], [place] [phone] * HIV combo antigen/antibody (02/09/2025 12:22 PM EDT) HIV Combo AB/AG Negative Negative 02/09/2025 2:29 PM EDT [facility] Blood Venous blood specimen / Unknown Venipuncture / Unknown 02/09/2025 12:22 PM EDT 02/09/2025 12:22 PM EDT Narrative [facility] - 02/09/2025 2:29 PM EDT This test is a 4th generation HIV Antigen-Antibody Combination assay, using a chemiluminescent microparticle immunoassay, for the simultaneous qualitative detection of human immuno- deficiency virus (HIV) p24 antigen and antibodies to HIV type 1 (HIV-1) and/or HIV type 2 (HIV-2) in human serum or plasma. The intelworksnity HIV Ag/Ab Combo assay is intended to be used as an aid in the diagnosis of HIV-1 and/or HIV-2 infection, including acute or primary HIV-1 infection. Initially-positive tests are repeated in duplicate. Repeat-positive tests will be confirmed for HIV by a HIV-1/HIV-2 rapid supplemental/ differentiation antibody assay. This testing algorithm is in line with the current CDC recommendations. [employer] LAB BLOOD ORDERABLES NO S TAT Final Result Performing Organization Address City/[facility]/ZIP Co de Phone Number [facility] [address] [place] [address], [place] [phone] * Hepatitis C antibody (02/09/2025 12:22 PM EDT) Pathologist [facility] Hepatitis C Antibody Negative Negative 02/09/2025 2:30 PM EDT [facility] Comment:Anti-HCV (HCVAb) Not Detected. Patient is presumed not to be infected with HCV. The possibility of exposure to HCV cannot be excluded. Blood Venous blood specimen / Unknown Venipuncture / Unknown 02/09/2025 12:22 PM EDT 02/09/2025 12:22 PM EDT [employer] LAB BLOOD ORDERABLES NO S TAT Final Result [facility] [address] [place] [address], [place] [phone] * Hepatitis B surface antigen (02/09/2025 12:22 PM EDT) Hepatitis B Surface Antigen Negative Negative 02/09/2025 2:30 PM EDT [facility] Comment:HBsAg Not Detected. Specimen is presumed to be negative for Hepatitis B surface Antigen. Blood Venous blood specimen / Unknown Venipuncture / Unknown 02/09/2025 12:22 PM EDT 02/09/2025 12:22 PM EDT us Elizabeth Adame APRN LAB BLOOD ORDERABLES NO S TAT Final Result Performing Organization Address City/[facility]/ZIP Co de Phone Number [facility] [address] [place] [address], * POCT , urine (02/09/2025 11:51 AM EDT) Preg Test, Ur Negative Negative Test Device Lot # [id number] Test Device Exp. date 03/21/2026 Internal Control Pass (Y/N) Yes Urine 02/09/2025 11:5 1 AM EDT Elizabeth Adame APRN POINT OF CARE TEST ORDERA BLES Final Result * HPV, high risk, NAAT (05/06/2022 11:29 AM EDT) HPV, high-risk Negative Negative 05/09/2022 2:12 PM EDT [facility] [place] biopsy (procedure) Cervix uteri structure / Unknown Non-blood Collection / Unknown 05/06/2022 11:29 AM EDT 05/06/2022 1:35 PM EDT Narrative [facility] - 05/09/2022 2:12 PM EDT [...] L ORDERABLES Final Result Performing Organization Address City/[facility]/ZIP Co de Phone Number [facility] [address] [place] [address], * Pap Test (05/06/2022 11:29 AM EDT) Case Report Cytology ?Case: [id number] ? Authorizing Provider: ??Elizabeth Adame APRN ?? Collected: ? 05/06/2022 1129 ? Ordering Location: ? [facility] Department of Received: ?2022 0853 ? [facility] [place] ? First Screen: ?Hoda Baker, RUT (ASCP) ? Pathologist: ? Brittany Kimbrough MD ? Specimen: ?Cytopathology, screening PAP test, Cervix ? 05/09/2022 2:12 PM EDT [facility] LMP 04/15/2022 05/09/2022 2:12 PM EDT [facility] Interpretation Negative for intraepithelial lesion or malignancy 05/09/2022 2:12 PM EDT [facility] at 1412 EDT Specimen Adequacy Satisfactory for evaluation, endocervical/bender sformation zone component present 05/09/2022 2:12 PM EDT [facility] Other Findings Reparative changes 05/09/2022 2:12 PM EDT [facility] Specimen Processing Thin Prep pap with manual screen/rescreen or review 05/09/2022 2:12 PM EDT [facility] Educational Note The Pap test is a screening test which carries an inherent false negative rate. These test results should be correlated with the patient's clinical findings and history. 05/09/2022 2:12 PM EDT [facility] Embedded Images 2:12 PM EDT [facility] High Risk HPV Nucleic Acid Detection Negative 05/09/2022 2:12 PM EDT [facility] Comment: Negative results indicate HPV [...] Department of Pathology and Laboratory Medicine at [facility] [place] biopsy (procedure) Cervix uteri structure / Unknown Non-blood Collection / Unknown 05/06/2022 11:29 AM EDT 2022 8:53 AM EDT us Elizabeth Adame CORROSION PREVENTION METAL SPRAYER LAB PATHOLOGY/CYTOLOGY OR DERABLES Final Result [facility] [address] [place] [address], [place] [phone] from Last 3 Months or Most Recently Relevant to Health Maintenance Insurance [employer] - OUT OF STATE Care Teams Revenue Analyst Relationship Specialty Start Date End Date Pcp, MD Joya [address] [place] [address] PCP - General Internal Medicine 04/29/22 Elizabeth Adame, CORROSION PREVENTION METAL SPRAYER [address] [place] [id number] Advanced Nurse Practitioner Obstetrics and Gynecology 05/06/22
--- OUTSIDE RECORDS SUMMARY | 2025-02-15 11:55 | XMS_ITS | Clinical Summary ---
Author Organization [employer] [facility] ity Address [address] [place] [address] Care Team Providers Care Kilnman Name Role Phone Анна Guido MD Primary [...] age to complete this topic Care Teams Kilnman Relationship Specialty Start Date End Date Анна Guido MD PCP - General 11/22/13
--- OUTSIDE RECORDS SUMMARY | 2025-02-15 11:55 | XMS_ITS | Clinical Summary ---
Author Organization [facility] Address [address] [place] [address] Care Team Providers Care Electrical Engineering Drafting Officer Name Role Phone Pcp, No Primary Care [...] this topic Insurance [employer] HMO Care Teams Electrical Engineering Drafting Officer Relationship Specialty Start Date End Date Pcp, No PCP - General General Medicine 05/03/23
[2025-02-15 14:57] LABS: MANUAL DIFF FLAG NO
[2025-02-15 15:00] LABS: Basophils Percent Auto 0.7 % (0-2); Eosinophils Absolute Auto 0.1 X10*3/uL (0.0-0.4); Eosinophils Percent Auto 2.6 % (0-4); Hematocrit 39.1 % (37.0-47.0); Imm Gran Abs Auto 0.01 X10*3/uL (0.00-0.03); Imm Gran Pct Auto 0.2 % (0.0-0.4); Lymphocytes Percent Auto 36.9 % (20-40); Mean Corpuscular HGB Conc 33.2 g/dl (31.0-35.0); Mean Corpuscular Hemoglobin 29.1 pg (27.0-33.0); Mean Corpuscular Volume 87.7 fL (80.0-98.0); Mean Platelet Volume 9.9 fL (9.4-12.3); Monocytes Absolute Auto 0.3 X10*3/uL (0.1-1.2); Monocytes Percent Auto 5.5 % (2-11); Neutrophils Absolute Auto 2.9 x10*3/uL (2.0-8.3); Neutrophils Percent Auto 54.1 % (45-73); Platelet Count 294 X10*3/uL (160-400); Red Blood Count 4.46 X10*6/uL (4.20-5.50); Red Cell Distribution Width 13.8 % (11.0-16.0); White Blood Count 5.4 X10*3/uL (4.8-10.8)
[2025-02-15 15:27] LABS: Alanine Aminotransferase 14 U/L (0-31); Albumin Level 3.9 g/dL (3.5-5.0); Anion Gap 11 (12-20); Aspartate Amino Transferase 21 U/L (5-31); Bilirubin Total 0.3 mg/dL (0.0-1.0); Blood Urea Nitrogen 11 mg/dL (9-16); Calcium 8.9 mg/dL (8.4-10.2); Carbon Dioxide 22 mmol/L (22-29); Chloride 110 mmol/L (96-108); Cholesterol 230 mg/dL (<200); Estimated Glomerular Filt Rate > 60; Glucose Fasting 89 mg/dL (60-99); HDL Cholesterol 61 mg/dL (>40); Iron 74 mcg/dL (30-160); LDL Cholesterol Calculated 143 mg/dL (<100); Magnesium 1.9 mg/dL (1.6-2.6); Percent Iron Saturation 23 % (15-50); Potassium 4.1 mmol/L (3.3-5.1); Sodium 139 mmol/L (135-145); Total Iron Binding Capacity 325 mcg/dL (228-428); Total Protein 6.7 g/dL (6.5-8.0); Triglycerides 130 mg/dL (<150); Unsaturated Iron Binding 251 ug/dL
[2025-02-15 15:29] LABS: Estimated Average Glucose 105 mg/dL; Hemoglobin A1C 167.3179 umol/L; Hemoglobin A1c % 5.3 % (<6.0); Total Hemoglobin (HGBA1C) 4790.5334 umol/L
[2025-02-15 15:37] LABS: Creatinine Urine 142.26 mg/dL; Microalbum/Creatinine Ratio Ur 8.4 ug/mg cr (<30)
[2025-02-15 15:49] LABS: Folate 13.3 ng/mL (> or = 4.0); Vitamin B12 398 pg/mL (200-900)
[2025-02-15 15:51] LABS: Ferritin 25 ng/mL (10-122); TSH reflex Free T4 0.51 uIU/mL (0.32-4.0); Vitamin D 25-OH Total 61.3 ng/mL (>30)
[2025-02-15 16:51] LABS: Alkaline Phosphatase 45 U/L (39-117)
== END 2025-02-15 10:50 | disposition home or self-care (01) ==
LOC: HO.WFDLDS 10:49
PROVIDERS: Visit Provider Physician Assistant
DX: L98.9 Disorder of the skin and subcutaneous tissue, unspecified (principal); L30.9 Dermatitis, unspecified; B35.1 Tinea unguium; R53.83 Other fatigue; R10.13 Epigastric pain; K59.00 Constipation, unspecified; R73.01 Impaired fasting glucose; Z13.6 Encounter for screening for cardiovascular disorders
CPT/HCPCS: 36415; 80053; 80061; 82043; 82306; 82570; 82607; 82728; 82746; 83036; 83540; 83735; 84443; 85025